=== PATIENT | female | born 1965 | race African-American/Black ===

== ENCOUNTER 2017-05-04 04:55 | Emergency (ER) | payer MEDICAID ==
[~2017-05-04] VITALS: Ht 152.4 cm; Wt 117.0 kg
[2017-05-04 05:03] VITALS: Ht 152.4 cm; Wt 117.0 kg
[2017-05-04 06:31] VITALS: BP 188/114
== END 2017-05-04 06:00 | disposition home or self-care (01) ==
LOC: ED 04:55
DX: J06.9 Acute upper respiratory infection, unspecified (principal); R09.81 Nasal congestion; I10 Essential (primary) hypertension; Z88.6 Allergy status to analgesic agent; Z88.8 Allergy status to other drugs, medicaments and biological substances; Z90.710 Acquired absence of both cervix and uterus

== ENCOUNTER 2018-07-18 15:25 | Emergency (ER) | payer SELFPAY ==
[~2018-07-18] VITALS: Ht 152.4 cm; Wt 112.9 kg
[2018-07-18 15:34] VITALS: Ht 152.4 cm; Wt 112.9 kg
[2018-07-18 18:27] VITALS: BP 100/51
== END 2018-07-18 18:27 | disposition home or self-care (01) ==
LOC: ED 15:25
DX: R22.0 Localized swelling, mass and lump, head (principal); T78.1XXA Other adverse food reactions, not elsewhere classified, initial encounter; T78.3XXA Angioneurotic edema, initial encounter; X58.XXXA Exposure to other specified factors, initial encounter
CPT/HCPCS: J0171; J1200; J2930; J3490